=== PATIENT | male | born 1950 | race Caucasian/White ===

== ENCOUNTER 2024-06-23 06:00 | Inpatient (IN) | payer MEDICARE ==
[~2024-06-23] VITALS: Ht 172.7 cm; Wt 84.4 kg
[2024-06-23 06:10] VITALS: BP 117/71; PULSE 99; RESP 14; TEMP 98.6; O2SAT 98
[2024-06-23 07:33] VITALS: O2SAT 98
[2024-06-23 07:34] LABS: BASOPHILS % (AUTO) 0.2 % (0.0-2.0); HEMATOCRIT 40.7 % (36-52); HEMOGLOBIN 13.7 g/dL (12.0-18.0); LYMPHOCYTES # (AUTO) 0.6 K/uL (2.0-11.5); LYMPHOCYTES % (AUTO) 5.1 % (20.5-51.1); MEAN CORPUSCULAR HEMOGLOBIN 30 pg (27-31); MEAN CORPUSCULAR HGB CONC 34 g/dL (33-37); MONOCYTES # (AUTO) 0.4 K/uL (0.8-1.0); MONOCYTES % (AUTO) 3.7 % (1.7-9.3); NEUTROPHILS # (AUTO) 10.7 K/uL (1.8-7.7); PLATELET COUNT (AUTO) 175 K/uL (140-450); RED BLOOD CELL COUNT(AUTO) 4.62 MIL/uL (4.20-6.10); WHITE BLOOD COUNT (AUTO) 11.8 K/uL (4.8-10.8)
[2024-06-23 07:49] LABS: ALBUMIN 3.8 g/dL (3.4-5.0); BILIRUBIN,DIRECT 0.1 mg/dL (0.0-0.3); TOTAL BILIRUBIN 0.7 mg/dL (0.0-1.0); TOTAL PROTEIN, SERUM 7.9 g/dL (6.4-8.2)
[2024-06-23 08:04] LABS: ANION GAP 16.7 (8-16); CALCIUM 9.3 mg/dL (8.5-10.1); CARBON DIOXIDE 23.5 mmol/L (21-32); CHLORIDE 99 mmol/L (98-107); GLUCOSE 138 mg/dL (74-106); POTASSIUM 4.2 mmol/L (3.5-5.1); SODIUM SERUM 135 mmol/L (136-145); UREA NITROGEN, BLOOD 20 mg/dL (7-18)
[2024-06-23 09:49] LABS: APPEARANCE,URINE CLEAR (CLEAR); BILIRUBIN,URINE NEGATIVE (NEGATIVE); BLOOD, URINE 3+ (NEGATIVE); COLOR,URINE YELLOW (YELLOW); LEUKOCYTE ESTERASE ,URINE 1+ (NEGATIVE); NITRITE, URINE NEGATIVE (NEGATIVE); PH,URINE 7.5 (5.0-9.0); PROTEIN,URINE 1+ (NEGATIVE); UGLUCOSE NEGATIVE (NEGATIVE)
[2024-06-23 09:58] LABS: BACTERIA,URINE 10-30 (MOD) /HPF (None Seen); RBC,URINE 11-20 (MOD) /HPF (0-5); SQUAMOUS EPITHELIAL CELL,UR 0-3 (FEW) /LPF (0-3 (FEW))
[2024-06-23] MEDS ORDERED: cefTRIAXone 1,000 MG VIAL ONE (10:12)
[2024-06-23] MEDS ORDERED: ONDANSETRON 4 MG/2 ML VIAL IVP PRN (12:05)
[2024-06-23] MEDS ORDERED: HYDROcodone/APAP 5/325 MG 1 TAB TAB PO PRN (12:05)
[2024-06-23 12:27] LABS: MAGNESIUM 1.8 mg/dL (1.8-2.4); PHOSPHORUS 2.7 mg/dL (2.5-4.9)
[2024-06-23] MEDS: NACL 0.9% 1,000 ML IV SCH (13:14)
[2024-06-23] MEDS ORDERED: CALC1TAB72 PO (17:10)
[2024-06-23] MEDS ORDERED: TRAZ-343 PO (17:10)
[2024-06-23] MEDS ORDERED: OMEP40EC23 PO (17:10)
[2024-06-23] MEDS ORDERED: VITB12 PO (17:10)
[2024-06-23] MEDS ORDERED: TAMS0.4C96 PO (17:10)
[2024-06-23] MEDS ORDERED: FOLI1TAB90 PO (17:10)
[2024-06-23] MEDS ORDERED: OXYB5TAB44 PO (17:10)
[2024-06-23] MEDS ORDERED: ARIP30TA12 PO (17:10)
[2024-06-23] MEDS ORDERED: SERT100T PO (17:10)
[2024-06-23 18:29] VITALS: PULSE 69; RESP 18; O2SAT 96
[2024-06-23 20:00] VITALS: PULSE 69; RESP 18; O2SAT 96
[2024-06-23] MEDS: MORPHINE SULFATE 2 MG/ML SYR IVP PRN (21:11)
[2024-06-24 04:00] VITALS: BP 147/72; PULSE 60; RESP 18; TEMP 98.4; O2SAT 97
[2024-06-24 06:15] LABS: BASOPHILS % (AUTO) 0.6 % (0.0-2.0); EOSINOPHILS # (AUTO) 0.2 K/uL (0-0.4); HEMATOCRIT 40.6 % (36-52); HEMOGLOBIN 13.8 g/dL (12.0-18.0); LYMPHOCYTES # (AUTO) 1.6 K/uL (2.0-11.5); LYMPHOCYTES % (AUTO) 31.3 % (20.5-51.1); MEAN CORPUSCULAR HEMOGLOBIN 30 pg (27-31); MEAN CORPUSCULAR HGB CONC 34 g/dL (33-37); MONOCYTES # (AUTO) 0.5 K/uL (0.8-1.0); MONOCYTES % (AUTO) 10.4 % (1.7-9.3); NEUTROPHILS # (AUTO) 2.9 K/uL (1.8-7.7); NEUTROPHILS % (AUTO) 54.7 % (42.2-75.2); PLATELET COUNT (AUTO) 171 K/uL (140-450); RED BLOOD CELL COUNT(AUTO) 4.61 MIL/uL (4.20-6.10); RED CELL DISTRIBUTION WIDTH 15.8 % (11.6-13.7); WHITE BLOOD COUNT (AUTO) 5.3 K/uL (4.8-10.8)
[2024-06-24 06:24] LABS: ALANINE AMINOTRANSFERASE 12 U/L (12-78); ALBUMIN 3.7 g/dL (3.4-5.0); ALKALINE PHOSPHATASE 69 U/L (50-136); ANION GAP 13.5 (8-16); ASPARTATE AMINOTRANSFERASE 19 U/L (15-37); CALCIUM 8.8 mg/dL (8.5-10.1); CARBON DIOXIDE 24.3 mmol/L (21-32); CHLORIDE 103 mmol/L (98-107); CREATININE 0.9 mg/dL (0.6-1.3); GLUCOSE 89 mg/dL (74-106); MAGNESIUM 1.7 mg/dL (1.8-2.4); PHOSPHORUS 3.1 mg/dL (2.5-4.9); POTASSIUM 3.8 mmol/L (3.5-5.1); SODIUM SERUM 137 mmol/L (136-145); TOTAL BILIRUBIN 0.6 mg/dL (0.0-1.0); TOTAL PROTEIN, SERUM 7.5 g/dL (6.4-8.2); UREA NITROGEN, BLOOD 16 mg/dL (7-18)
[2024-06-24 08:00] VITALS: PULSE 69; RESP 18; O2SAT 96
[2024-06-24] MEDS: DOCUSATE SODIUM 100 MG GELCAP PO SCH (09:00)
[2024-06-24] MEDS ORDERED: traZODone 50 MG TAB PO PRN (10:55)
[2024-06-24] MEDS: METOCLOPRAMIDE 10 MG TAB PO SCH (11:30)
[2024-06-24 12:00] VITALS: BP 130/94; PULSE 91; RESP 16; TEMP 97.7; O2SAT 95
[2024-06-24] MEDS: MAG SULF 2000 MG/WATER PREMIX 50 ML IV SCH (18:53)
[2024-06-24 20:00] VITALS: BP 143/78; PULSE 107; RESP 17; RESP 18; TEMP 98.2; O2SAT 96; O2SAT 99
[2024-06-24] MEDS: OXYBUTYNIN 5 MG TAB PO SCH (21:38)
[2024-06-25 04:00] VITALS: BP 136/74; PULSE 107; RESP 18; TEMP 98.2; O2SAT 96
[2024-06-25] MEDS: ACETAMINOPHEN 325 MG TAB PO PRN (04:40)
[2024-06-25 05:04] LABS: BASOPHILS # (AUTO) 0.1 K/uL (0.00-0.22); BASOPHILS % (AUTO) 0.8 % (0.0-2.0); EOSINOPHILS # (AUTO) 0.1 K/uL (0-0.4); HEMATOCRIT 40.4 % (36-52); HEMOGLOBIN 13.5 g/dL (12.0-18.0); LYMPHOCYTES # (AUTO) 1.5 K/uL (2.0-11.5); LYMPHOCYTES % (AUTO) 19.6 % (20.5-51.1); MEAN CORPUSCULAR HEMOGLOBIN 30 pg (27-31); MEAN CORPUSCULAR HGB CONC 33 g/dL (33-37); MEAN CORPUSCULAR VOLUME 88.6 fL (80-94); MONOCYTES # (AUTO) 0.8 K/uL (0.8-1.0); MONOCYTES % (AUTO) 9.9 % (1.7-9.3); NEUTROPHILS # (AUTO) 5.3 K/uL (1.8-7.7); NEUTROPHILS % (AUTO) 68.7 % (42.2-75.2); PLATELET COUNT (AUTO) 201 K/uL (140-450); RED BLOOD CELL COUNT(AUTO) 4.56 MIL/uL (4.20-6.10); RED CELL DISTRIBUTION WIDTH 15.9 % (11.6-13.7); WHITE BLOOD COUNT (AUTO) 7.8 K/uL (4.8-10.8)
[2024-06-25 05:19] LABS: ALANINE AMINOTRANSFERASE 16 U/L (12-78); ALBUMIN 3.7 g/dL (3.4-5.0); ALKALINE PHOSPHATASE 68 U/L (50-136); ASPARTATE AMINOTRANSFERASE 19 U/L (15-37); CALCIUM 8.8 mg/dL (8.5-10.1); CARBON DIOXIDE 22.9 mmol/L (21-32); CHLORIDE 100 mmol/L (98-107); GLUCOSE 79 mg/dL (74-106); MAGNESIUM 1.5 mg/dL (1.8-2.4); PHOSPHORUS 3.1 mg/dL (2.5-4.9); POTASSIUM 3.9 mmol/L (3.5-5.1); SODIUM SERUM 137 mmol/L (136-145); TOTAL BILIRUBIN 0.8 mg/dL (0.0-1.0); TOTAL PROTEIN, SERUM 7.5 g/dL (6.4-8.2); UREA NITROGEN, BLOOD 17 mg/dL (7-18)
[2024-06-25 08:00] VITALS: PULSE 87; RESP 18; O2SAT 94
[2024-06-25] MEDS: ARIPiprazole 10 MG TAB PO SCH (08:52)
[2024-06-25] MEDS: TAMSULOSIN 0.4 MG CAP PO SCH (08:52)
[2024-06-25] MEDS: PANTOPRAZOLE 40 MG TABEC PO SCH (08:52)
[2024-06-25] MEDS: CYANOCOBALAMIN 100 MCG TAB PO SCH (08:52)
[2024-06-25] MEDS: FOLIC ACID 1 MG TAB PO SCH (08:53)
[2024-06-25] MEDS: CHOLECALCIFEROL 1,000 IU TAB PO SCH (08:53)
[2024-06-25] MEDS: SERTRALINE 50 MG TAB PO SCH (08:53)
[2024-06-25] MEDS ORDERED: NON-FORMULARY ITEM (Cholecalciferol (Vitamin D3) (Vitamin D3) 1 CAP) PO SCH (09:00)
[2024-06-25] MEDS ORDERED: NON-FORMULARY ITEM (Omeprazole* (Prilosec*) 40 MG) PO SCH (09:00)
[2024-06-25] MEDS: MAG SULF 2000 MG/WATER PREMIX 50 ML IV ONE (11:24)
[2024-06-25] MEDS: CHLORHEXADINE GLUC 2% CLOTH TP SCH (16:30)
[2024-06-25 20:00] VITALS: BP 131/68; PULSE 97; RESP 18; TEMP 95.6; O2SAT 96
[2024-06-25 20:01] VITALS: PULSE 97; RESP 18; O2SAT 96
[2024-06-26 00:11] VITALS: BP 111/72; PULSE 85; RESP 20; TEMP 95.9; O2SAT 96
[2024-06-26 04:04] VITALS: BP 134/78; PULSE 75; RESP 16; TEMP 95.7; O2SAT 96
[2024-06-26 05:27] LABS: BASOPHILS % (AUTO) 0.7 % (0.0-2.0); EOSINOPHILS # (AUTO) 0.2 K/uL (0-0.4); EOSINOPHILS % (AUTO) 3.4 % (0.0-4.0); HEMATOCRIT 38.4 % (36-52); HEMOGLOBIN 12.7 g/dL (12.0-18.0); LYMPHOCYTES # (AUTO) 1.2 K/uL (2.0-11.5); LYMPHOCYTES % (AUTO) 22.8 % (20.5-51.1); MEAN CORPUSCULAR HEMOGLOBIN 29 pg (27-31); MEAN CORPUSCULAR HGB CONC 33 g/dL (33-37); MEAN CORPUSCULAR VOLUME 88.8 fL (80-94); MONOCYTES # (AUTO) 0.6 K/uL (0.8-1.0); MONOCYTES % (AUTO) 11.2 % (1.7-9.3); NEUTROPHILS # (AUTO) 3.3 K/uL (1.8-7.7); NEUTROPHILS % (AUTO) 61.9 % (42.2-75.2); PLATELET COUNT (AUTO) 192 K/uL (140-450); RED BLOOD CELL COUNT(AUTO) 4.33 MIL/uL (4.20-6.10); RED CELL DISTRIBUTION WIDTH 15.8 % (11.6-13.7); WHITE BLOOD COUNT (AUTO) 5.4 K/uL (4.8-10.8)
[2024-06-26 05:28] LABS: ALANINE AMINOTRANSFERASE 18 U/L (12-78); ALBUMIN 3.6 g/dL (3.4-5.0); ALKALINE PHOSPHATASE 67 U/L (50-136); ANION GAP 15.3 (8-16); ASPARTATE AMINOTRANSFERASE 19 U/L (15-37); CALCIUM 8.7 mg/dL (8.5-10.1); CARBON DIOXIDE 22.6 mmol/L (21-32); CHLORIDE 102 mmol/L (98-107); GLUCOSE 107 mg/dL (74-106); MAGNESIUM 1.7 mg/dL (1.8-2.4); PHOSPHORUS 3.4 mg/dL (2.5-4.9); POTASSIUM 3.9 mmol/L (3.5-5.1); SODIUM SERUM 136 mmol/L (136-145); TOTAL BILIRUBIN 0.8 mg/dL (0.0-1.0); TOTAL PROTEIN, SERUM 7.2 g/dL (6.4-8.2); UREA NITROGEN, BLOOD 12 mg/dL (7-18)
[2024-06-26 08:00] VITALS: PULSE 86; RESP 18; TEMP 97.4; O2SAT 96
[2024-06-26] MEDS: CRUSHER, PILL MC ONE (09:43)
[2024-06-26] MEDS: MUPIROCIN CA NASAL 2% 1GM TUBE NS SCH (09:43)
[2024-06-26] MEDS ORDERED: CEPH-588 PO (10:13)
[2024-06-26] MEDS ORDERED: BACTO TP (10:13)
[2024-06-26 10:45] VITALS: BP 134/78; PULSE 86; RESP 18; TEMP 97.4
== END 2024-06-26 13:22 | disposition home or self-care (01) | DRG 690 ==
LOC: MED 06:00 → MMU 12:10 → MTU 16:55
PROVIDERS: ADMIT Student in an Organized Health Care Education/Training Program; ATTEND Student in an Organized Health Care Education/Training Program
PROC: 0DH67UZ Insertion of Feeding Device into Stomach, Via Natural or Artificial Opening (ICD-10-PCS; principal; 2024-06-23)
DX: N30.00 Acute cystitis without hematuria (principal); K56.699 Other intestinal obstruction unspecified as to partial versus complete obstruction; F41.9 Anxiety disorder, unspecified; D72.829 Elevated white blood cell count, unspecified; G47.30 Sleep apnea, unspecified; Z79.899 Other long term (current) drug therapy; Z88.8 Allergy status to other drugs, medicaments and biological substances
CPT/HCPCS: 36415; 71045; 74021; 74250; 80048; 80053; 80076; 81001; 82140; 83690; 83735; 84100; 85025; 87040; 87081; 87086; 87186; 96374; 96375; 97110; 97116; 97163-GP; 97530; 99285; J0696; J2270; J3475; J7060; J8597; Q0092